=== PATIENT | female | born 1970 ===

== ENCOUNTER 2019-06-15 09:06 | Day surgery (SDC) | payer BC ==
[2019-06-15] VITALS (9 sets, daily range): BP systolic 114–149; BP diastolic 74–98
[~2019-06-15] VITALS: Ht 158.8 cm; Wt 68.0 kg
--- NOTE | 2019-06-15 07:22 | Anethesia Preoperative Eval ---
Anesthesia Pre-op PMH/ROS General Date of Evaluation: Jun 15, 2019 Time of Evaluation: 07:21 Anesthesiologist: obi ASA Score: ASA 2 Mallampati Score Class I : Soft palate, uvula, fauces, pillars visible Class II: Soft palate, uvula, fauces visible Class III: Soft palate, base of uvula visible Class IV: Only hard plate visible Mallampati Classification: Class II Surgeon: celeste Diagnosis: colon screening Surgical Procedure: colonoscopy Anesthesia History: none Social History: smoking - nonsmoker Family History: no anesthesia problems Allergies: Coded Allergies: No Known Allergies (Unverified , 06/15/19) Medications: see eMAR Patient NPO?: Yes Past Medical History Neurologic/Psychiatric: Reports: depression/anxiety Musculoskeletal/Integumentary: Reports: other - back pain PSxH Narrative: nasal sx, tonsillectomy Anesthesia Pre-op Phys. Exam Physician Exam Last Vital Signs Date Time Temp Pulse Resp B/P (MAP) Pulse Ox O2 Delivery O2 Flow Rate FiO2 06/15/19 09:41 Room Air 06/15/19 09:34 98.6 75 18 130/85 97 Constitutional: NAD Neurologic: CN 2-12 intact Cardiovascular: RRR Respiratory: CTA Gastrointestinal: S/NT/ND Airway Exam Mallampati Score: Class II MO: full Neck: flexible TMD: 2fb ROM: full Anesthesia Pre-op A/P Labs Urine Test Labs Test 06/15/19 09:20 Urine HCG, Qualitative Negative (NEGATIVE) Risk Assessment & Plan Assessment: asa2 Plan: mac Status Change Before Surgery: No Pre-Antibiotics Drug: Su Hamlin MD Jun 15, 2019 07:22
[~2019-06-15 09:06] MED LIST: Atropine Inj 1mg/10ml Syr IV PRN; DiphenhydrAMINE 50mg/ml Inj IVP PRN; LR 1000ml 1,000 ML IVLG SCH; Midazolam 2mg/2ml Inj IVP PRN; fentaNYL 100 mcg/2 mL IV PRN
[2019-06-15] MEDS ORDERED: LOESTRIN1 EAC1 PO (09:41)
[2019-06-15] MEDS ORDERED: [UNRECOGNIZED DRUG - OTHER] SL (09:41)
--- NOTE | 2019-06-15 10:59 | Short Stay Surgery H&P ---
History of Present Illness History of Present Illness Chief Complaint See attached H&P HPI Vani Fuller is a 49 year old female who was admitted on for Colon Screening Patient History Allergies: Coded Allergies: No Known Allergies (Unverified , 06/15/19) Medication History Scheduled Norethindrone A-E Estradiol (Loestrin), 1 EACH PO DAILY, (Reported) [Odactra], Unknown Dose SL DAILY, (Reported) Physical Exam Vital Signs Last Vital Signs Date Time Temp Pulse Resp B/P (MAP) Pulse Ox O2 Delivery O2 Flow Rate FiO2 06/15/19 09:41 Room Air 06/15/19 09:34 98.6 75 18 130/85 97 Labs Laboratory Tests Test 06/15/19 09:20 Urine HCG, Qualitative Negative (NEGATIVE) Plan Attestation Are the patient's medical conditions optimized for surgery? Yudelka Gonzalez MD Jun 15, 2019 10:59
[2019-06-15] MEDS ORDERED: Propofol 200mg/20ml IV ONE (11:00)
[2019-06-15] MEDS ORDERED: LR 1000ml ONE (11:00)
[2019-06-15] MEDS ORDERED: Lidocaine 1% MPF 10mg/ml 5ml ONE (11:00)
--- NOTE | 2019-06-15 11:00 | Pre-Procedure Note/Attestation ---
Pre-Procedure Note/Attestation Complete Prior to Procedure Planned Procedure: not applicable Procedure Narrative: colon Indications for Procedure Pre-Operative Diagnosis: Screening Attestation I attest that I discussed the nature of the procedure; its benefits; risks and complications; and alternatives (and the risks and benefits of such alternatives ), prior to the procedure, with the patient (or the patient's legal premium representative). I attest that, if there was a reasonable possibility of needing a blood transfusion, the patient (or the patient's legal premium representative) was given the [facility] standardized written summary, pursuant to the Rikki Donna Blood Safety Act ([place] Health and Safety Code # 1645, as amended). I attest that I re-evaluated the patient just prior to the surgery and that there has been no change in the patient's H&P, except as documented below: Yudelka Gonzalez MD Jun 15, 2019 11:00
--- NOTE | 2019-06-15 11:50 | Endoscopy Procedure Note ---
Endoscopy Procedure Note General Indication for Procedure: screen Procedures Performed: colonoscopy Operative Findings/Diagnosis: Dim TV Polyp Specimen: yes Pt Tolerated Procedure Well: Yes Estimated Blood Loss: none Anesthesia Anesthesiologist: Terry Wood Anesthesia: MAC Medications Medication Given: see anesthesia record Inserted Devices Implant(s) used?: No GI Core Measures 50 yrs or older w/o bx or poly: No 10yrs. F/U recommended: No If not recommended, why?: Above average risk 18 years or older w/prev. colo: No <3yrs. since last colonoscopy: No Med reason:<3 yrs.: Last colonoscopy >= to 3yrs: Yes Yudelka Gonzalez MD Jun 15, 2019 11:50
--- NOTE | 2019-06-15 11:51 | Brief Operative Note ---
Immediate Post Operative Note Operative Note Chief Complaint: Screen Pre-op Diagnosis: Screening Procedure: colon bx Post-op Diagnosis: TV Dim Polyp Surgeon: celeste Anesthesiologist: Terry Wood Anesthesia: MAC, moderate sedation Specimen: yes Complications: none Condition: stable Fluids: per anesthesia Implant(s) used?: No Yudelka Gonzalez MD Jun 15, 2019 11:51
--- NOTE | 2019-06-15 17:15 | Operative Note - Dictated ---
DATE OF OPERATION: 06/15/2019 GASTROENTEROLOGY PROCEDURE PROCEDURE: Colonoscopy with biopsy. SURGEON: Yudelka Gonzalez M.D. ANESTHESIA: Per Dr. Farley. PRE-ENDOSCOPIC DIAGNOSIS: Screening colonoscopy. POST-ENDOSCOPIC DIAGNOSIS: Diminutive polyp in the transverse colon, status post biopsy removal. DESCRIPTION OF PROCEDURE: The procedure, its risks, indications, alternatives, and possible complications were explained and informed consent was obtained. Rectal exam was done and then colonoscope was introduced into the rectum and advanced to the cecum. The colonoscope was then gradually withdrawn and the mucosa examined carefully. Examination of the colonic mucosa revealed a diminutive polyp in the transverse colon, which was removed with biopsy forceps. The retroflexed view of the rectum was unremarkable. The colonoscope was removed and the patient was sent to Recovery in good condition. COMPLICATIONS: None. RECOMMENDATIONS: 1. Follow up biopsy results. 2. Outpatient followup. Yudelka Gonzalez M.D. DR: ASHLY JOB#: [id number] CC:
== END 2019-06-15 12:55 | disposition home or self-care (01) ==
LOC: GAS 09:06
DX: Z12.11 Encounter for screening for malignant neoplasm of colon (principal); K63.5 Polyp of colon; D12.3 Benign neoplasm of transverse colon
CPT/HCPCS: 45380; 81025; J2704; J7120; 94003; 94150